=== PATIENT | female | born 1990 | race Two or more races ===

== ENCOUNTER 2024-11-15 13:53 | Emergency (ER) | payer OTHER ==
[~2024-11-15] VITALS: Ht 172.7 cm; Wt 78.9 kg
[2024-11-15] MEDS ORDERED: PRENATA CHEWAB1 EACH PO (14:04)
== END 2024-11-15 19:42 | disposition home or self-care (01) ==
LOC: ER 13:53
DX: O26.892 Other specified pregnancy related conditions, second trimester (principal); Z3A.15 15 weeks gestation of pregnancy; T14.8XXA Other injury of unspecified body region, initial encounter; V43.52XA Car driver injured in collision with other type car in traffic accident, initial encounter; Y93.89 Activity, other specified; Y92.413 State road as the place of occurrence of the external cause; R10.2 Pelvic and perineal pain

== ENCOUNTER 2024-12-16 09:10 | Outpatient (CLI) | payer OTHER ==
[~2024-12-16 09:10] MED LIST: PRENATA CHEWAB1 EACH PO
== END 2024-12-16 09:11 | disposition home or self-care (01) ==
LOC: PRENATAL 09:10
PROVIDERS: ATTEND Obstetrics & Gynecology Maternal & Fetal Medicine
DX: O44.00 Complete placenta previa NOS or without hemorrhage, unspecified trimester (principal); Z3A.20 20 weeks gestation of pregnancy

== ENCOUNTER → 2025-03-14 08:25 | Outpatient (CLI) | payer OTHER | END | disposition home or self-care (01) | LOC: PRENATAL 08:25 | PROVIDERS: ATTEND Obstetrics & Gynecology Maternal & Fetal Medicine | DX: O26.849 Uterine size-date discrepancy, unspecified trimester (principal); O36.8130 Decreased fetal movements, third trimester, not applicable or unspecified; Z3A.33 33 weeks gestation of pregnancy ==

== ENCOUNTER 2025-04-12 22:05 | Inpatient (IN) | payer OTHER ==
[~2025-04-12] VITALS: Ht 172.7 cm; Wt 90.7 kg
[2025-04-12 20:42] VITALS: BP 98/67
[2025-04-12 23:27] VITALS: BP 112/75
[2025-04-13] VITALS (7 sets, daily range): BP systolic 90–122; BP diastolic 52–78; O2SAT 96
[2025-04-13] MEDS ORDERED: FLUCONAZOLE 150 MG TABLET PO ONE (00:45)
[2025-04-13] MEDS ORDERED: BETAMETHASONE ACETATE,SOD PHOS 30 MG/5 ML ML IM SCH (00:45)
[2025-04-13] MEDS ORDERED: RINGERS SOLUTION,LACTATED 1,000 ML IV SCH (01:00)
[2025-04-13] MEDS ORDERED: AMPICILLIN SODIUM 1,000 MG VIAL IV SCH (01:00)
[2025-04-13] MEDS ORDERED: AMPICILLIN SODIUM 2,000 MG VIAL IV ONE (01:00)
[2025-04-13 01:39] LABS: BASO % 0.3 % (0.1-1.2); EOS # 0.10 (0.04-0.54); EOS % 1.0 % (0.7-7.0); LYMPH # 2.98 (1.18-3.74); LYMPH % 28.8 % (19.3-53.1); MEAN PLATELET VOLUME 11.80 fl (9.4-12.4); MONO # 0.66 (0.24-0.82); MONO % 6.4 % (4.7-12.5); NEUT # 6.49 (1.56-6.13); NEUT % 62.7 % (34.0-71.1); RED CELL DISTRIBUTION WIDTH 14.2 % (11.6-14.4)
[2025-04-13] MEDS ORDERED: PEPCID20 MG PO (01:53)
[2025-04-13] MEDS ORDERED: TUMS200 MG PO (01:54)
[2025-04-13 01:59] LABS: INR < 0.93
[2025-04-13 02:05] LABS: ALT/SGPT 13.0 U/L (12-78); AST/SGOT 16.0 U/L (15-37); BILIRUBIN TOTAL 0.26 mg/dL (0.3-1.2); BUN CREA RATIO 13.0 (7.0-25.0); CREATININE SERUM 0.52 mg/dL (0.55-1.02); GFR 134.98; GLOBULINA 3.8 G/DL (2.4-3.5); GLUCOSE FASTING 105.0 mg/dL (65-100); OSMOLALITY SERUM 280.0 MOSM/KG (275-295)
[2025-04-13 03:50] LABS: URINE APPEARANCE Cloudy; URINE BILIRRUBIN Negative (NEGATIVE); URINE BLOOD Moderate; URINE COLOR Dark Yellow; URINE GLUCOSE Negative (NEGATIVE); URINE KETONE Trace (NEGATIVE); URINE LEUKOCYTE Moderate; URINE NITRATE Negative; URINE PROTEIN 30 (NEGATIVE); URINE UROBILINOGEN 1.0 E.U./dl
[2025-04-13 03:53] LABS: URINE EPITHELIAL CELLS 137.9 uL (0.0-38.8); URINE RBC 21.7 uL (0.0-20.8); URINE WBC 1110.7 uL (0.0-23.2)
[2025-04-13 04:10] LABS: URINE BACTERIA > 9821.5 uL (0.0-1933); URINE CAST 0.87 uL (0.0-1.40); URINE YEAST FEW /hpf
[2025-04-14] MEDS ORDERED: BETAMETHASONE ACETATE,SOD PHOS 30 MG/5 ML ML IM SCH (01:00)
== END 2025-04-14 01:47 | disposition home or self-care (01) | DRG 833 ==
LOC: OBS/DEL 22:05 → LDR 04-13 00:59
PROVIDERS: ADMIT General Practice; ATTEND General Practice
PROC: 4A1HXCZ Monitoring of Products of Conception, Cardiac Rate, External Approach (ICD-10-PCS; principal; 2025-04-13)
PROC: BY4FZZZ Ultrasonography of Third Trimester, Single Fetus (ICD-10-PCS; 2025-04-13)
PROC: BU4CZZZ Ultrasonography of Uterus and Ovaries (ICD-10-PCS; 2025-04-13)
DX: O60.03 Preterm labor without delivery, third trimester (principal); O36.8130 Decreased fetal movements, third trimester, not applicable or unspecified; O26.843 Uterine size-date discrepancy, third trimester; Z3A.36 36 weeks gestation of pregnancy

== ENCOUNTER 2025-04-19 17:10 | Inpatient (IN) | payer OTHER ==
[~2025-04-19] VITALS: Ht 172.7 cm; Wt 3.2 kg
[~2025-04-19 17:10] MED LIST changes: +PEPCID20 MG PO; +TUMS200 MG PO
[2025-04-19] MEDS ORDERED: AMPICILLIN SODIUM 2,000 MG VIAL IV STA (19:19)
[2025-04-19 19:30] VITALS: BP 126/82
[2025-04-19] MEDS ORDERED: RINGERS SOLUTION,LACTATED 1,000 ML IV SCH (19:30)
[2025-04-19] MEDS ORDERED: OXYTOCIN 500 ML IV ONE (19:30)
[2025-04-19 20:17] LABS: BASO % 0.3 % (0.1-1.2); EOS # 0.08 (0.04-0.54); EOS % 0.7 % (0.7-7.0); LYMPH # 3.34 (1.18-3.74); LYMPH % 31.0 % (19.3-53.1); MEAN PLATELET VOLUME 12.10 fl (9.4-12.4); MONO # 0.78 (0.24-0.82); MONO % 7.2 % (4.7-12.5); NEUT # 6.44 (1.56-6.13); NEUT % 60.0 % (34.0-71.1); RED CELL DISTRIBUTION WIDTH 14.0 % (11.6-14.4)
[2025-04-19 20:19] LABS: URINE APPEARANCE Clear; URINE BILIRRUBIN Negative (NEGATIVE); URINE BLOOD Negative; URINE COLOR Yellow; URINE GLUCOSE Negative (NEGATIVE); URINE KETONE Negative (NEGATIVE); URINE LEUKOCYTE Trace; URINE NITRATE Negative; URINE PROTEIN Trace (NEGATIVE); URINE UROBILINOGEN 1.0 E.U./dl
[2025-04-19 20:22] LABS: URINE BACTERIA 663.6 uL (0.0-1933); URINE EPITHELIAL CELLS 36.7 uL (0.0-38.8); URINE RBC 7.6 uL (0.0-20.8); URINE WBC 17.6 uL (0.0-23.2)
[2025-04-19 20:25] LABS: URINE CAST 0.43 uL (0.0-1.40)
[2025-04-19 20:45] LABS: INR < 0.93
[2025-04-19 20:49] LABS: BUN CREA RATIO 13.0 (7.0-25.0); CREATININE SERUM 0.54 mg/dL (0.55-1.02); GFR 129.23; GLUCOSE FASTING 109.0 mg/dL (65-100); OSMOLALITY SERUM 278.0 MOSM/KG (275-295)
[2025-04-19] MEDS ORDERED: AMPICILLIN SODIUM 1,000 MG VIAL IV SCH (21:00)
[2025-04-19 23:24] VITALS: BP 125/81
[2025-04-20 03:08] VITALS: BP 133/73
[2025-04-20] MEDS ORDERED: MORPHINE SULFATE 2 MG/ML SYRINGE IV ONE (03:15)
[2025-04-20 04:05] VITALS: BP 126/78
[2025-04-20] MEDS ORDERED: OXYTOCIN 10 UNITS/ML VIAL IV ONE (06:00)
[2025-04-20] MEDS ORDERED: ERYTHROMYCIN BASE OPHT 1GM EACH TUBE OP ONE (06:00)
[2025-04-20] MEDS ORDERED: LIDOCAINE HCL 1% 10ML VIAL IJ ONE (06:45)
[2025-04-20] MEDS ORDERED: ACETAMINOPHEN 325 MG TABLET PO SCH (07:12)
[2025-04-20] MEDS ORDERED: KETOROLAC TROMETHAMINE 30 MG VIAL IV SCH (07:12)
[2025-04-20] MEDS ORDERED: KETOROLAC TROMETHAMINE 30 MG VIAL IV NR (07:15)
[2025-04-20] MEDS ORDERED: ONDANSETRON HCL 2 MG/ML VIAL IV PRN (07:15)
[2025-04-20] MEDS ORDERED: MORPHINE SULFATE 4 MG/ML CARTRIDGE IV PRN (07:15)
[2025-04-20] MEDS ORDERED: OXYTOCIN 1,000 ML IV SCH (07:15)
[2025-04-20] MEDS ORDERED: DOCUSATE SODIUM 100MG CAP PO SCH (09:00)
[2025-04-20] MEDS ORDERED: PNV,CALCIUM 72/IRON/FOLIC ACID 1 TAB TABLET PO SCH (09:00)
[2025-04-20] MEDS ORDERED: SIMETHICONE 125 MG CAPSULE PO SCH (09:00)
[2025-04-20 10:08] VITALS: BP 120/72
[2025-04-20 11:29] LABS: BASO % 0.2 % (0.1-1.2); EOS # 0.00 (0.04-0.54); EOS % 0.0 % (0.7-7.0); LYMPH # 2.04 (1.18-3.74); LYMPH % 11.7 % (19.3-53.1); MEAN PLATELET VOLUME 11.90 fl (9.4-12.4); MONO # 1.09 (0.24-0.82); MONO % 6.2 % (4.7-12.5); NEUT # 14.23 (1.56-6.13); NEUT % 81.3 % (34.0-71.1); RED CELL DISTRIBUTION WIDTH 13.8 % (11.6-14.4)
[2025-04-20 16:21] VITALS: BP 112/75
[2025-04-20 20:00] VITALS: BP 117/77
[2025-04-21] VITALS: BP 100/66
[2025-04-21 08:00] VITALS: BP 127/75
[2025-04-21] MEDS ORDERED: OxyCODONE HCL 5 MG TABLET (ROXICODONE) PO PRN (13:15)
[2025-04-21 16:33] VITALS: BP 109/73
[2025-04-22 00:35] VITALS: BP 103/67
[2025-04-22 08:50] VITALS: BP 120/83
[2025-04-22 16:00] VITALS: BP 108/75
[2025-04-23 02:10] VITALS: BP 108/75
[2025-04-23 08:11] VITALS: BP 112/66
== END 2025-04-23 13:03 | disposition home or self-care (01) | DRG 788 ==
LOC: NST 17:10 → OB/GYN 19:06 → LDR 19:06 → O/R 04-20 07:10 → OB/GYN 04-20 08:54
PROVIDERS: ADMIT General Practice; ATTEND General Practice
PROC: 4A1HXCZ Monitoring of Products of Conception, Cardiac Rate, External Approach (ICD-10-PCS; 2025-04-19)
PROC: 10D00Z1 Extraction of Products of Conception, Low, Open Approach (ICD-10-PCS; principal; 2025-04-20 07:00)
DX: O82 Encounter for cesarean delivery without indication (principal); Z3A.37 37 weeks gestation of pregnancy; Z37.0 Single live birth